=== PATIENT | male | born 1955 | race Caucasian/White ===

== ENCOUNTER 2022-05-27 16:11 | Emergency (ER) | payer BC, MEDICAID ==
[~2022-05-27] VITALS: Ht 162.6 cm; Wt 82.3 kg
[~2022-05-27 16:11] MED LIST: APIX5TAB3 PO; ATOR40TA72 PO; DILT120C20 PO; ESCI20TA39 PO; FURO-149 PO; HYDR-3965 PO; LINA5TAB4 PO; METF-438 PO; ONDA-103 PO; PANT40TA54 PO; TRAM50TA2 PO
[2022-05-27] MEDS ORDERED: normal saline 1000ML IV soln IV ONE (17:00)
--- NOTE | 2022-05-27 17:13 | NUR ---
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 PT GAVE CONSENT FOR HER TO BE INCLUDED IN HIS CARE.
[2022-05-27 17:16] LABS: EOSINOPHILS % (AUTO) 0.1 % (0-6); HEMATOCRIT 33.5 % (42.0-52.0); HEMOGLOBIN 10.9 g/dl (14.0-17.9); WHITE BLOOD COUNT 8.6 X10'3 (4.5-11.0)
[2022-05-27 17:17] LABS: BASOPHILS % (AUTO) 0.5 % (0-1); LYMPHOCYTES # (AUTO) 0.7 X10'3 (1.1-4.8); LYMPHOCYTES % (AUTO) 8.7 % (21-51); MEAN CORPUSCULAR HEMOGLOBIN 27.6 PG (27.0-31.0); MEAN CORPUSCULAR HGB CONC 32.7 g/dL (33.0-36.5); MEAN CORPUSCULAR VOLUME 84.7 FL (78-98); MEAN PLATELET VOLUME 9.9 FL (7.4-10.4); MONOCYTES # (AUTO) 2.5 X10'3 (0-0.9); MONOCYTES % (AUTO) 28.9 % (2-12); NEUTROPHILS # (AUTO) 5.3 X10'3 (1.8-7.7); NEUTROPHILS % (AUTO) 61.8 % (42-75); PLATELET COUNT 265 X10'3 (140-440); RED BLOOD COUNT 3.95 X10'6 (4.70-6.10); RED CELL DISTRIBUTION WIDTH 19.1 % (11.5-14.5)
[2022-05-27 17:35] LABS: ALANINE AMINOTRANSFERASE 14 U/L (12-78); ALBUMIN 2.4 G/DL (3.4-5.0); ALBUMIN/GLOBULIN RATIO 0.7 (1.1-1.5); ALKALINE PHOSPHATASE 258 IU/L (46-116); ANION GAP 4 (8-16); ASPARTATE AMINO TRANSFERASE 10 U/L (10-37); BILIRUBIN,TOTAL 1.4 MG/DL (0.1-1.0); BLOOD UREA NITROGEN 9 MG/DL (7-18); BUN/CREATININE RATIO 15.8 (5.4-32.0); CALCIUM 8.3 MG/DL (8.5-10.1); CHLORIDE 93 MMOL/L (99-107); CREATINE KINASE 16 U/L (39-308); CREATININE 0.57 MG/DL (0.60-1.10); GLUCOSE 386 MG/DL (70-104); POTASSIUM 4.4 MMOL/L (3.5-5.1); SODIUM 129 MMOL/L (135-145); TOTAL PROTEIN 5.8 G/DL (6.4-8.2); eGFR > 90 ML/MIN
[2022-05-27 17:40] LABS: ANISOCYTOSIS 2+; PLATELET ESTIMATE NORMAL; TOTAL CELLS COUNTED 100
[2022-05-27 17:41] LABS: POLYCHROMASIA 1+; TARGET CELLS 2+
[2022-05-27 17:42] LABS: HYPOCHROMASIA 2+
[2022-05-27 17:43] VITALS: BP 130/63
[2022-05-27 17:43] LABS: STOMATOCYTES FEW
--- NOTE | 2022-05-27 18:20 | NUR ---
TC TO WAREDRESSER, FRANSISCA HECK. NO ANSWER ON PHONE, BUT MESSAGE LEFT THAT PATIENT IS BEING DC AND NEEDS TRANSPORTATION HOME. AWAITING CALL BACK.
== END 2022-05-27 19:35 | disposition home or self-care (01) ==
LOC: ER 16:11
DX: R62.50 Unspecified lack of expected normal physiological development in childhood (principal); E87.1 Hypo-osmolality and hyponatremia; E11.65 Type 2 diabetes mellitus with hyperglycemia; I48.91 Unspecified atrial fibrillation; I50.9 Heart failure, unspecified; E11.9 Type 2 diabetes mellitus without complications; Z79.899 Other long term (current) drug therapy; W19.XXXA Unspecified fall, initial encounter; Y93.89 Activity, other specified; Y92.89 Other specified places as the place of occurrence of the external cause; Y99.8 Other external cause status
CPT/HCPCS: 70450; 80053; 82140; 82550; 84145; 85007; 85025; 96360; 99284; J7030

== ENCOUNTER 2022-05-27 21:25 | Emergency (ER) | payer BC, MEDICAID ==
[~2022-05-27] VITALS: Ht 162.6 cm; Wt 82.3 kg
[2022-05-27 22:47] LABS: BASOPHILS # (AUTO) 0.1 X10'3 (0-0.2); BASOPHILS % (AUTO) 0.6 % (0-1); EOSINOPHILS % (AUTO) 0.1 % (0-6); HEMATOCRIT 35.3 % (42.0-52.0); HEMOGLOBIN 11.5 g/dl (14.0-17.9); LYMPHOCYTES # (AUTO) 0.4 X10'3 (1.1-4.8); MEAN CORPUSCULAR HEMOGLOBIN 27.5 PG (27.0-31.0); MEAN CORPUSCULAR HGB CONC 32.5 g/dL (33.0-36.5); MEAN CORPUSCULAR VOLUME 84.6 FL (78-98); MEAN PLATELET VOLUME 9.6 FL (7.4-10.4); MONOCYTES # (AUTO) 2.2 X10'3 (0-0.9); MONOCYTES % (AUTO) 26.2 % (2-12); NEUTROPHILS # (AUTO) 5.7 X10'3 (1.8-7.7); NEUTROPHILS % (AUTO) 68.1 % (42-75); PLATELET COUNT 274 X10'3 (140-440); RED BLOOD COUNT 4.18 X10'6 (4.70-6.10); RED CELL DISTRIBUTION WIDTH 19.1 % (11.5-14.5); WHITE BLOOD COUNT 8.3 X10'3 (4.5-11.0)
[2022-05-27 22:56] LABS: ALANINE AMINOTRANSFERASE 16 U/L (12-78); ALBUMIN 2.6 G/DL (3.4-5.0); ALBUMIN/GLOBULIN RATIO 0.7 (1.1-1.5); ALKALINE PHOSPHATASE 263 IU/L (46-116); ANION GAP 6 (8-16); ASPARTATE AMINO TRANSFERASE 9 U/L (10-37); BILIRUBIN,TOTAL 1.6 MG/DL (0.1-1.0); BLOOD UREA NITROGEN 8 MG/DL (7-18); BUN/CREATININE RATIO 12.5 (5.4-32.0); CALCIUM 8.3 MG/DL (8.5-10.1); CHLORIDE 95 MMOL/L (99-107); CREATININE 0.64 MG/DL (0.60-1.10); GLUCOSE 339 MG/DL (70-104); POTASSIUM 4.4 MMOL/L (3.5-5.1); SODIUM 132 MMOL/L (135-145); TOTAL CARBON DIOXIDE 31.2 MMOL/L (24-32); TOTAL PROTEIN 6.2 G/DL (6.4-8.2); eGFR > 90 ML/MIN
[2022-05-28 02:00] LABS: ANISOCYTOSIS 2+; HYPOCHROMASIA 2+; PLATELET ESTIMATE NORMAL; POLYCHROMASIA 1+; TARGET CELLS 2+; TOTAL CELLS COUNTED 100
[2022-05-28 02:01] LABS: STOMATOCYTES 5
[2022-05-28] MEDS ORDERED: furosemide 10 MG/1 ML 10ml inj IV ONE (08:00)
[2022-05-28 08:37] VITALS: BP 131/74
--- NOTE | 2022-05-28 09:44 | NUR ---
OSMANI MIRANDA ([facility]) #[phone]
--- NOTE | 2022-05-28 10:00 | NUR ---
DR. ANDRADE HERE TO SEE PATIENT. PATIENT STATES THAT HE WANTS TO GO HOME, AND NOT BE ADMITTED INPATIENT. PATIENT IS RESTING IN ROOM, HOPING TO SPEAK WITH HEMATOLOGIST ONCOLOGIST OR CONSULTING PROJECT DIRECTOR ABOUT CURRENT HEALTH CONDITION.
--- NOTE | 2022-05-28 11:41 | NUR ---
OLEKSANDR FERNANDEZ: YURI [phone] PT GAVE CONSENT FOR ED TO BE INCLUDED IN CARE. ED IS WILLING TO PICK PT UP AT DISCHARGE TIME.
--- NOTE | 2022-05-28 12:58 | NUR ---
TC TO NEIGHBOR, OLEKSANDR FERNANDEZ, FOR TRANSPORTATION HOME. OLEKSANDR FERNANDEZ OR PATIENT'S NEICEOSMANI, WILL BE COMING TO PICK PATIENT UP.
== END 2022-05-28 13:25 | disposition home or self-care (01) ==
LOC: ER 21:26
DX: I50.9 Heart failure, unspecified (principal); R06.02 Shortness of breath; I48.91 Unspecified atrial fibrillation; E11.9 Type 2 diabetes mellitus without complications; Z79.899 Other long term (current) drug therapy
CPT/HCPCS: 36415; 71045; 80053; 83880; 84484; 85007; 85025; 93005; 99285; A4349; A4357